=== PATIENT | female | born 1975 | race Caucasian/White ===

== ENCOUNTER 2024-04-28 08:18 | Outpatient (CLI) | payer OTHER, SELFPAY ==
[2024-04-28 08:37] LABS: Basophils Absolute Auto 0.1 K/mm3 (0.0-0.1); Basophils Percent Auto 1.2 % (0.2-1.2); Eosinophils Absolute Auto 0.1 K/mm3 (0-0.3); Eosinophils Percent Auto 2.3 % (0-4.4); Hematocrit 46.7 % (37.0-47.0); Hemoglobin 16.2 g/dL (12.0-15.0); Immature Granulocyte Absolute 0.01 K/mm3 (0.00-0.031); Immature Granulocyte Percent A 0.2 % (0-0.5); Lymphocytes Absolute Auto 2.22 K/mm3 (0.9-3.2); Lymphocytes Percent Auto 36.5 % (18.3-44.2); Mean Corpuscular HGB Conc 34.7 g/dl (32-36); Mean Corpuscular Hemoglobin 30.4 pg (26-34); Mean Corpuscular Volume 87.6 fl (80-100); Mean Platelet Volume 10.5 fl (7.4-10.4); Monocytes Absolute Auto 0.4 K/mm3 (0.1-0.6); Monocytes Percent Auto 6.7 % (2.6-8.5); Neutrophils Absolute Auto 3.2 K/mm3 (1.3-6.7); Neutrophils Percent Auto 53.1 % (45.5-73.1); Platelet Count Result 322 k/mm3 (150-375); Red Blood Count 5.33 M/mm3 (4.2-5.4); Red Cell Distribution Width 12.6 % (11.5-14.5); White Blood Count 6.1 K/mm3 (4.5-10.0)
[2024-04-28 08:53] LABS: Alanine Aminotransferase 23 U/L (6-35); Alkaline Phosphatase 76 U/L (38-126); Anion Gap 11 mmol/L (4-12); Aspartate Amino Transferase 30 U/L (14-36); Blood Urea Nitrogen 15 mg/dL (7-17); Calcium 9.6 mg/dL (8.4-10.2); Carbon Dioxide 29 mmol/L (22-30); Chloride 96 mmol/L (98-107); Cholesterol 284 mg/dL (0-200); Estimated Glomerular Filt Rate > 60; Glucose 89 mg/dL (65-110); HDL Direct 64 mg/dL; Potassium 3.2 mmol/L (3.4-5.0); Sodium 136 mmol/L (137-145); Triglycerides 124 mg/dL (<150)
[2024-04-28 09:04] LABS: LDL Cholesterol Direct 167 mg/dL
[2024-04-28 09:15] LABS: Free T4 Free Thyroxine 1.58 ng/mL (0.78-2.19); Vitamin D 25 Hydroxy 33.8 ng/mL
== END 2024-04-28 08:19 | disposition home or self-care (01) ==
LOC: ANHLAB 08:19
PROVIDERS: PCP Family Medicine; Visit Provider Family Medicine
DX: E55.9 Vitamin D deficiency, unspecified (principal); R53.83 Other fatigue; I10 Essential (primary) hypertension; R73.9 Hyperglycemia, unspecified; Z13.220 Encounter for screening for lipoid disorders
CPT/HCPCS: 36415; 80053; 80061; 82306; 83036; 84439; 84443; 85025

== ENCOUNTER 2024-11-13 08:19 | Outpatient (CLI) | payer OTHER, SELFPAY ==
--- NOTE | ~2024-11-13 | MM_ITS ---
EXAMINATION: MM screening ruddy BI w avi HISTORY: Screening mammogram, family history of breast cancer in her mother. TECHNIQUE: Craniocaudal and mediolateral oblique 3-D tomosynthesis images were obtained and synthetic 2-D images were generated. CAD analysis was submitted and interpreted. COMPARISON: No prior mammogram is available for comparison at this institution. BREAST PARENCHYMAL COMPOSITION:Not Dense. There are scattered areas of fibroglandular density. FINDINGS: No suspicious mass, calcification, or architectural distortion are identified in either melly ast to suggest malignancy. There has been no suspicious interval change. IMPRESSION: No mammographic evidence of malignancy. Recommend routine screening mammography in one year. BI-RADS Category 1: Negative Reviewed, dictated and finalized at location . OPHYSIOLOGICAL TECHNICIAN
== END 2024-11-13 08:20 | disposition home or self-care (01) ==
LOC: ANHIMG 08:20
PROVIDERS: PCP Family Medicine; Visit Provider Obstetrics & Gynecology
DX: Z12.31 Encounter for screening mammogram for malignant neoplasm of breast (principal)
CPT/HCPCS: 77063; 77067

== ENCOUNTER 2024-12-09 15:32 | Outpatient (CLI) | payer OTHER, SELFPAY ==
--- OUTSIDE RECORDS SUMMARY | 2024-12-09 16:18 | XMS_ITS | Clinical Summary ---
Author Organization [facility] Address [address] [place] [address] Care Team Providers Care Java Manager Name Role Phone Unavailable Primary Care Provider Unavailabl e Active Problems No known active problems Social History Tobacco Use Types Packs/Day Years Used Date Smoking Tobacco: Never Assessed Comments Unknown Sex and Gender Information Value Date Recorded Sex Assigned at Not on file Legal Sex Female 12:21 PM LINOTYPE WORKER Gender Identity Not on file Sexual Orientation Not on file Last Filed Vital Signs Vital Sign Reading Time Taken Comments Blood Pressure 129/84 12/17/2022 1:52 PM LINOTYPE WORKER Pulse 80 12/17/2022 1:52 PM LINOTYPE WORKER Temperature 37.6 ??C (99.7 ??F) 12/17/2022 1:52 PM CS T Respiratory Rate 18 12/17/2022 1:52 PM LINOTYPE WORKER Oxygen Saturation 100% 12/17/2022 1:52 PM LINOTYPE WORKER Inhaled Oxygen Concentration - - Weight 88.5 kg (195 lb) 12/17/2022 1:52 PM LINOTYPE WORKER Height 165.1 cm (5' 5 ) 12/17/2022 1:52 PM LINOTYPE WORKER Body Mass Index 32.45 12/17/2022 1:52 PM LINOTYPE WORKER Plan of Treatment Health Maintenance Due Date Last Done Comments DTAP/TDAP/TD VACCINES (1 - Tdap) 1994 HEPATITIS B VACCINES (1 of 3 - 19+ 3-dose series) 1994 CERVICAL CANCER SCREENING 2005 COLORECTAL SCREENING 2020 Colorectal Cancer Screening 2020 FIT-DNA Q 3 years 2020 FIT/FOBT Q 1 year 2020 Flex Sig/CT Colonography Q 5 years 2020 BREAST CANCER SCREENING 11/27/2022 11/27/19 22, 10/01/2020 INFLUENZA VACCINE (#1) 2024 PNEUMOCOCCAL VACCINE 0-64 YEARS Aged Out No longer eligible b ased on patient's age to complete this topic Insurance [facility]
--- OUTSIDE RECORDS SUMMARY | 2024-12-09 16:18 | XMS_ITS | Clinical Summary ---
Author Organization [facility] Address [address] [place] [address] Phone Care Team Providers Care Disability Liaison Officer Name Role Phone Provider, None Primary Care Provider Unavailabl e Allergies No known active allergies Medications hydroCHLOROthiaz gabriele 25 MG Tablet 08/26/2020 Ac tive PARoxetine (PAXIL) 10 MG Tablet 08/23/2020 Active OMEPRAZOLE PO Take by mouth. Active Active Problems No known active problems Social History Tobacco Use Types Packs/Day Years Used Date Smoking Tobacco: Never Smokeless Tobacco: Never Comments No Sex and Gender Information Value Date Recorded Sex Assigned at Not on file Legal Sex Female 1:14 PM BOOSTER ASSEMBLER Gender Identity Not on file Sexual Orientation Not on file Last Filed Vital Signs Vital Sign Reading Time Taken Comments Blood Pressure 136/80 12/08/2020 2:46 PM BOOSTER ASSEMBLER Pulse 54 12/08/2020 2:46 PM BOOSTER ASSEMBLER Temperature 36.6 ??C (97.9 ??F) 12/08/2020 2:46 PM CS T Respiratory Rate 16 12/08/2020 2:46 PM BOOSTER ASSEMBLER Oxygen Saturation 98% 12/08/2020 2:46 PM BOOSTER ASSEMBLER Inhaled Oxygen Concentration - - Weight 81.2 kg (179 lb) 12/08/2020 2:46 PM BOOSTER ASSEMBLER Height - - Body Mass Index - - Plan of Treatment Health Maintenance Due Date Last Done Comments Hepatitis C Virus (HCV) Screening 1975 Hepatitis B Immunization (1 of 3 - 19+ 3-dose series) 1994 Pap Smear 1996 Cervical Cancer Screening (CCS) 2005 HPV/Cotest 2005 Discussion re Starting/Frequency of Mammograms 2015 Colonoscopy 2020 Colorectal Cancer Screening 2020 Influenza Immunization (#1) 2024 SARS-COV-2 Immunization ( season) 2024 01/28/2021, 12/31/2020 Respiratory Syncytial Virus (RSV) Immunization (Adult) (1 - 1-dose 75+ series) 2050 DTaP/Tdap/Td Immunization Discontinued 12/12/2019 TdaP Immunization Completed 12/12/2019 Meningococcal Immunization (ACWY) Aged Out No longer eligible based on patient's age to complete this topic Pneumococcal Immunization Combined Aged Out No longer eligible based on patient's age to complete this topic Rotavirus Immunization Aged Out No lo nger eligible based on patient's age to complete this topic Care Teams Disability Liaison Officer Relationship Specialty Start Date End Date Provider, None [place] PCP - General 09/30/20
--- OUTSIDE RECORDS SUMMARY | 2024-12-09 16:18 | XMS_ITS | Referral Summary ---
Author Organization [facility] Address [address] [place] [address] Care Team Providers Care Farm Equipment Engineer Name Role Phone Chen Barfield MD Primary Care Provide r Allergies No known active allergies Medications omeprazole (PriLOSEC) 20 mg capsule Take 10 mg by mouth daily Take one half tablet Active loratadine (CLARITIN) 10 mg tablet Take 10 mg by mouth daily Active scopolamine 1 mg over 3 days patch [address] 1 patch on the skin every third day as needed (nausea) 10 patch 3 Active Additional Information Patient not taking.Reported on 03/01/2023 hydroCHLOROthia zide (HYDRODIURIL) 25 mg tablet Take 1 tablet (25 mg total) by mouth daily 90 tablet 3 Active Active Problems Problem Noted Date Diagnosed Date Hyperlipidemia, unspecified 03/01/2023 Assessment & Plan (03/01/2023 11:12 AM CDT): Lab Results Component Value Date CHOL 264 (H) 02/27/2023 Lab Results Component Value Date HDL 76 02/27/2023 Lab Results Component Value Date LDLCALC 175 (H) 02/27/2023 Lab Results Component Value Date TRIG 63 02/27/2023 No results found for: POCCHDLR No results found for: POCNONHDL No results found for: POCCHLPL ASCVD risk of 1.5% Discussed risks and benefits of the atorvastatin. She agrees to adjust her diet and if still elevated or worse will consider starting atorvastatin 10mg daily Recheck cmp and lipid before annual Encounter for completion of form with patient Assessment & Plan (03/01/2023 11:14 AM CDT): Forms will be filled and given back within the next 5-7 business days Acute pain of right knee 05/10/2022 Assessment & Plan (05/10/2022 12:04 PM CDT): Pain of 1 week Recommend rest, ice, compress, elevate, and aleve prn If no improvement will recommend xray and physical therapy F/u prn or worsening symptoms Encounter for wellness examination 05/10/2022 Assessment & Plan (05/10/2022 12:07 PM CDT): Ordered CBC, cmp, lipid, hgb a1c, HIV, hep c, TSH, and free t4 Flu Colonoscopy: she wants to read up on colMETEOR Networkuard and will call if she wants a referral. I explained the risk of not going through with screening which includes missing cancer and . She said will give us a call. Pap smear:will get records. Done in November Mammo:will get records. Done in November F/u in 1 year for annual Essential hypertension 05/10/2022 Assessment & Plan (03/01/2023 11:00 AM CDT): Bp in the office today BP Readings from Last 1 Encounters: 03/01/23 128/80 at goal <130/80 Continue current regimen of hctz 25mg daily and lisinopril 2.5mg daily Recommend DASH diet, heart-healthy lifestyle, exercise. Discussed the risks of hypertension. F/u at annual Assessment & Plan (05/10/2022 12:07 PM CDT): Bp in the office today BP Readings from Last 1 Encounters: 05/10/22 140/80 Near goal <130/80 Continue current regimen of hctz 25mg daily and lisinopril 5mg daily Recommend DASH diet, heart-healthy lifestyle, exercise. Discussed the risks of hypertension. F/u in 6 months Anxiety 05/10/2022 Assessment & Plan (05/10/2022 12:08 PM CDT): Stable Continue Paxil 5 mg daily [facility]erral to [facility] for therapy provided Follow-up p.r.n. Gastroesophageal reflux disease without esophagi tis 05/10/2022 Assessment & Plan (05/10/2022 12:08 PM CDT): Stable / clinically quiescent. Will continue to monitor. Omeprazole 20 mg daily Seasonal allergies 05/10/2022 Assessment & Plan (05/10/2022 12:08 PM CDT): Continue with Claritin 10 mg daily Immunizations Name Administration Dates Next Due Influenza, Unspecified 02/08/2023(Deferr ed: Patient Refused),05/10/2022(Deferred: Patient Refused),11/11/2021(Deferred: Patient Refused),06/11/2021(Deferred: Patient Refused) MMR 03/06/2023 Moderna SARS-CoV-2 Monovalen t Vaccination (12+ YRS) 10/31/2021,01/28/2021,12/31/2020 Tdap 12/12/2019 Social History Tobacco Use Types Packs/Day Years Used Date Smoking Tobacco: Never Smokeless Tobacco: Never Tobacco Cessation:Counseling Given: Not Answered AUDIT-C Answer Date Recorded Q1: How often do you have a drink containing alc ohol? Monthly or less 05/10/2022 Q2: How many drinks containi ng alcohol do you have on a typical day when you are drinking? 1 or 2 05/10/2022 Q3: How often do you have si x or more drinks on one occasion? Never 05/10/2022 PHQ-2 Answer Date Recorded PHQ-2 Total Score (If total score is 3 or more points, staff should administer the PHQ-9) 0 05/10/2022 Personal Safety Answer Date Recorded Getting School Help Needed Not on file 10/22 Comments No Sex and Gender Information Value Date Recorded Sex Assigned at Not on file Legal Sex Female 1:46 PM CDT Gender Identity Not on file Sexual Orientation Not on file Last Filed Vital Signs Vital Sign Reading Time Taken Comments Blood Pressure 128/80 03/01/2023 10:50 AM CDT Pulse 59 03/01/2023 10:50 AM CDT Temperature - - Respiratory Rate 16 03/01/2023 10:50 AM CDT Oxygen Saturation 98% 03/01/2023 10:50 AM CDT Inhaled Oxygen Concentration - - Weight 87.1 kg (192 lb) 03/01/2023 10:50 AM CDT Height 166.4 cm (5' 5.51 ) 03/01/2023 10:50 AM C DT Body Mass Index 31.45 03/01/2023 10:50 AM CDT Plan of Treatment Not on file Procedures Procedure Name Priority Date/Time Associated Diagnosis Comments SCREENING MAMMOGRAM BILATERAL W GARY Schedule Routine, Read Routine (OP Routine) 03/20/2023 2:42 PM CDT Screening mammogram, encounter for HEPATITIS C ANTIBODY Routine 02/27/2023 6:47 AM CDT Hypertension, unspecified type Healthcare maintenance from Last 3 Months or Most Recently Relevant to Health Maintenance Results * Screening Mammogram Bilateral W Gary (03/20/2023 2:42 PM CDT) Anatomical Region Laterality Modality Breast Bilateral Mammography 03/21/2023 10:1 1 AM CDT Impressions 03/21/2023 10:11 AM CDT There is no mammographic evidence of malignancy. A 1 year screening mammogram is recommended. BI-RADS: 2 - Benign. The patient has been or will be contacted. The patient will be entered into a reminder system with a target due date of 1 year for her next mammogram. Electronically signed by: MADALYN Banks 03/21/2023 10:11 AM CDT EXAMINATION: SCREENING MAMMOGRAM BILATERAL W GARY ORDERING HEALTHCARE PROVIDER: SELF SCREENING MAMMOGRAM HISTORY: Routine screening mammography. COMPARISON: ??11/27/2021. TECHNIQUE: CC and MLO views of both breasts were obtained with digital technique using digital breast tomosynthesis with C view. Computer aided detection was utilized. FINDINGS: DENSITY: The breasts are heterogeneously dense, which may obscure small masses. BREASTS: A small benign mass with circumscribed margins is unchanged in the central outer right breast at anterior depth. ??There is no new suspicious finding in either breast on mammogram. us Self Screening Mammogram IMG MAMMO PROCEDURES Fi nal Result * Hepatitis C antibody (02/27/2023 6:47 AM CDT) Hep C Ab Nonreactive Nonreactive [facility] (SHIV) Comment: Interpretive Data Nonreactive: Antibodies to HCV not detected. Does NOT exclude the possibility of recent exposure to HCV. Equivocal: Equivocal for HCV antibodies. Supplemental molecular testing will be automatically performed to determine infection status in accordance with current CDC screening recommendations. ?? Reactive: Positive for HCV antibodies. ??This may represent current or past HCV infection. Supplemental molecular testing will be automatically performed to determine ??current infection status in accordance with current CDC screening recommendations. Interpretive data was last revised on 2020. Testing performed by: [facility], [address] [place] [address]., [id number] Blood 02/27/2023 6:47 AM CDT 02/27/2023 9:32 AM CDT Chen Barfield MD LAB MICROBIOLOGY - NERAL ORDERABLES Final Result [facility] (SHIV) [address] [facility] Department [place] [address] from Last 3 Months or Most Recently Relevant to Health Maintenance Insurance [facility] PLUS [facility] CHOICE PLUS [place] [id number] Care Teams Farm Equipment Engineer Relationship Specialty Start Date End Date Chen Barfield MD [address] [facility] [address] [facility] [address] [place], [place] [address], [place] [address] PCP - General Family Medicine 05/10/22
--- OUTSIDE RECORDS SUMMARY | 2024-12-09 16:18 | XMS_ITS | Clinical Summary ---
Author Organization [facility] Address [address] [place] [address] Care Team Providers Care Tariff Compiler Name Role Phone Bridgette Nolan MD Primary Care Provider Source Comments [facility],non-owned Affiliates and Associated Physician Practices is amultiple site organization consisting of ambulatory clinics and hospital sitesin [place], [place], [place] and [place]. This disclosure is being madepursuant to the Care Everywhere program and may not contain all information available regarding this patient. Last updated 18.[facility] Allergies No known active allergies Medications * Be aware that medications may not be up to date on this document. Alwaysverify current medications with the patient. Medication Sig Dispensed Refills Start Date End Date Status hydroCHLOROthiazide (HYDRODIURIL) 25 MG tablet 08/26/2020 Active PARoxetine (PAXIL) 10 MG tablet 08/23/2020 Active Omeprazole (PRILOSEC PO) Active Family History Medical History Relation Name Comments Diabetes - Type 2 Father Hypertension Father Hypertension Maternal Grandfather Hypertension Maternal Grandmother Cancer - Breast Mother Hypertension Mother Hypertension Paternal Grandfather Hypertension Paternal Grandmother Relation Name Status Comments Father Maternal Grandfather Maternal Grandmother Mother Alive Paternal Grandfather Paternal Grandmother Social History Tobacco Use Types Packs/Day Years Used Date Smoking Tobacco: Never Smokeless Tobacco: Never Alcohol Use Standard Drinks/Week Comments Never 0 (1 standard drink = 0.6 oz pur e alcohol) AUDIT-C Answer Date Recorded Q1: How often do you have a drink containing alc ohol? Never 09/13/2020 Average Number of Drinks Not on file 020 Frequency of Binge Drinking Not on file 01/2020 PHQ-2 Answer Date Recorded PHQ2 TOTAL SCORE 0 11/27/2021 Sex and Gender Information Value Date Recorded Sex Assigned at Not on file Gender Identity Not on file Sexual Orientation Not on file Last Filed Vital Signs Vital Sign Reading Time Taken Comments Blood Pressure 165/97 11/27/2021 9:41 AM AQUATIC PERFORMER Pulse 70 11/27/2021 9:41 AM AQUATIC PERFORMER Temperature 36.7 ??C (98.1 ??F) 11/29/2020 4:50 PM CS T Respiratory Rate 17 11/07/2020 8:36 AM AQUATIC PERFORMER Oxygen Saturation 98% 11/14/2020 9:41 AM AQUATIC PERFORMER Inhaled Oxygen Concentration - - Weight 87.8 kg (193 lb 9.6 oz) 11/27/2021 9:41 A M AQUATIC PERFORMER Height 165.1 cm (5' 5 ) 11/27/2021 9:41 AM AQUATIC PERFORMER Body Mass Index 32.22 11/27/2021 9:41 AM AQUATIC PERFORMER Plan of Treatment Health Maintenance Due Date Last Done Comments COLOGUARD (AGES 45-75) - COL ON CA SCREENING 1975 COLON MONITORING 1975 COLONOSCOPY - COLON CA SCREENING 1975 CT COLONOGRAPHY - COLON CA SCREENING 1975 Colorectal Cancer Screening 1975 FIT - COLON CA SCREENING 1975 FLEX SIG - COLON CA SCREENING 1975 LIPID TESTING 1975 HIV SCREENING 1990 HEPATITIS C SCREENING 08/30/1993 DTAP/TDAP/TD VACCINES (1 - Tdap) 1994 HEPATITIS B VACCINE (1 of 3 - 19+ 3-dose series) 1994 SCREENING FOR DIABETES 11/27/2021 MAMMOGRAM 11/27/2023 11/27/2021, 10/01/2020 COVID-19 VACCINE (1 - 2023-2 5 season) 2024 INFLUENZA VACCINE (#1) 2024 08/22/2020 DEPRESSION SCREENING 11/11/2024 11/27/2021 ZOSTER VACCINE (1 of 2) 2025 PAP with HPV 11/27/2026 11/27/2021, 09/13/2020 HIB VACCINE Aged Out No longer eligi ble based on patient's age to complete this topic HPV VACCINE Aged Out No longer eligi ble based on patient's age to complete this topic MENINGOCOCCAL (Group B) VACCINE Aged Out No longer eligible b ased on patient's age to complete this topic MENINGOCOCCAL VACCINE Aged Out No miguelangel paulino eligible based on patient's age to complete this topic PNEUMOCOCCAL VACCINE Aged Out No long er eligible based on patient's age to complete this topic Procedures Procedure Name Priority Date/Time Associated Diagnosis Comments PAP IG CT+NG+TV+HPV HR Routine 11/27/2021 1:04 PM AQUATIC PERFORMER Well woman exam with routine gynecological exam MAMMO BILAT SCREENING W SALLY Routine 11/27/2021 11:34 AM AQUATIC PERFORMER Encounter for screening mammogram for malignant neoplasm of breast from Last 3 Months or Most Recently Relevant to Health Maintenance Results * PAP IG CT+NG+TV+HPV HR (11/27/2021 1:04 PM AQUATIC PERFORMER) Diagnosis [facility] ACCOUNT BILL Comment:NEGATIVE FOR INTRAEP ITHELIAL LESION OR MALIGNANCY. Specimen Adequacy [facility] ACCOUNT BILL Comment: Satisfactory for evaluation. ??Endocervical and/or squamous metaplastic cells (endocervical component) are present. Clinician Provided ICD10 [facility] ACCOUNT BILL Comment: Z01.419 N91.1 Performed by [facility] ACCOUNT BILL Comment:Mónica Fox, Cyto technologist (ASCP) Comment . [facility] ACCOUNT BILL Note [facility] ACCOUNT BILL Comment: The Pap smear is a screening test designed to aid in the detection of premalignant and malignant conditions of the uterine cervix. ??It is not a diagnostic procedure and should not be used as the sole means of detecting cervical cancer. ??Both false-positive and false-negative reports do occur. ? . IGLBP CPT Code Automation [facility] ACCOUNT BILL Comment: This liquid based ThinPrep(R) pap test was screened with the use of an image guided system. Human papillomavirus Aptima Negative Negative [facility] ACCOUNT BILL Comment: This nucleic acid amplification test detects fourteen high-risk HPV types (16,18,31,33,35,39,45,51,52,56,58,59,66,68) without differentiation. Chlamydia trachomatis AMARA Negative Negative [facility] ACCOUNT BILL GC AMARA Negative Negative [facility] ACCOUNT BILL Trichomonas vaginalis by AMARA Negative Negative [facility] ACCOUNT BILL Pathology/Cytolog y PART OF UTERINE CERVIX / Unknown 11/27/2021 1:04 PM AQUATIC PERFORMER 11/28/2021 Narrative [facility] ACCOUNT BILL - 11/29/2021 5:08 PM AQUATIC PERFORMER Source.............Cervix LMP / Prev Treat...Conization;[place] / BX Dates / Results....leep 1 yr ago No. of containers..01 ThinPrep Vial Resulting Agency Comment Lab Testing performed at: [address] ??[facility] [id number] Mya Means MD LAB - PATHOLOGY/CYTO LOGY ORDERABLES [facility] ACCOUNT BILL [address] [place] [address] * MAMMO BILAT SCREENING W SALLY (11/27/2021 11:34 AM AQUATIC PERFORMER) Anatomical Region Laterality Modality Breast Bilateral Mammography 11/27/2021 1:51 PM AQUATIC PERFORMER Impressions 11/27/2021 1:54 PM AQUATIC PERFORMER No mammographic evidence of malignancy in either breast. ASSESSMENT: BIRADS Category 1: Negative mammogram. RECOMMENDATION: Bilateral screening mammogram in one year. Thank you for allowing us to participate in the care of your patient. [facility] utilizes [employer] as a reminder system to notify patients of their next recommended mammogram. *Reading Radiologist: Morelia Everett on 11/27/2021 at 1:54 PM Narrative 11/27/2021 1:54 PM AQUATIC PERFORMER EXAMINATION: Digital screening mammogram. Low-dose full-field digital breast tomosynthesis examination was performed with synthetic 2D images and 3D acquisitions. Computer assisted detection was utilized. DATE: 11/27/2021 11:13 AM PRIOR: Several priors, most recently ??2020 BREAST PARENCHYMAL DENSITY: The breasts are heterogeneously dense, which may obscure small masses. FINDINGS: No suspicious masses, areas of architectural distortion or microcalcifications are evident on synthetic 2D mammogram or tomosynthesis images. There has been no significant interval change since the prior examination. Mya Means MD MAMMO ORDERABLES from Last 3 Months or Most Recently Relevant to Health Maintenance Care Teams Tariff Compiler Relationship Specialty Start Date End Date Bridgette Nolan MD [address] [facility] [address] [place] [id number] PCP - General Internal Medicine 09/13/20
--- OUTSIDE RECORDS SUMMARY | 2024-12-09 16:18 | XMS_ITS | Referral Summary ---
Author Organization [facility] Address [address] [place] [address] Care Team Providers Care Dinkey Engineer Name Role Phone Bridgette Nolan MD Primary Care Provider [phone] Source Comments [facility] [employer],non-owned Affiliates and Associated Physician Practices is amultiple site organization consisting of ambulatory clinics and hospital sitesin [place], [place], [place] and [place]. This disclosure is being madepursuant to the Care Everywhere program and may not contain all information available regarding this patient. Last updated 18.[facility] [employer] Allergies No known active allergies Medications * Be aware that medications may not be up to date on this document. Alwaysverify current medications with the patient. Medication Sig Dispensed Refills Start Date End Date Status hydroCHLOROthiazide (HYDRODIURIL) 25 MG tablet 08/26/2020 Active PARoxetine (PAXIL) 10 MG tablet 08/23/2020 Active Omeprazole (PRILOSEC PO) Active Social History Tobacco Use Types Packs/Day Years [...] Comments Blood Pressure 165/97 11/27/2021 9:41 AM GEOLOGY FACULTY MEMBER Pulse 70 11/27/2021 9:41 AM GEOLOGY FACULTY MEMBER Temperature 36.7 ??C (98.1 ??F) 11/29/2020 4:50 PM CS T Respiratory Rate 17 11/07/2020 8:36 AM GEOLOGY FACULTY MEMBER Oxygen Saturation 98% 11/14/2020 9:41 AM GEOLOGY FACULTY MEMBER Inhaled Oxygen Concentration - - Weight 87.8 kg (193 lb 9.6 oz) 11/27/2021 9:41 A M GEOLOGY FACULTY MEMBER Height 165.1 cm (5' 5 ) 11/27/2021 9:41 AM GEOLOGY FACULTY MEMBER Body Mass Index 32.22 11/27/2021 9:41 AM GEOLOGY FACULTY MEMBER Plan of Treatment Not on file Procedures Procedure Name Priority Date/Time Associated Diagnosis Comments PAP IG CT+NG+TV+HPV HR Routine 11/27/2021 1:04 PM GEOLOGY FACULTY MEMBER Well woman exam with routine gynecological exam MAMMO BILAT SCREENING W SALLY Routine 11/27/2021 11:34 AM GEOLOGY FACULTY MEMBER Encounter for screening mammogram for malignant neoplasm of breast from Last 3 Months or Most Recently Relevant to Health Maintenance Results * PAP IG CT+NG+TV+HPV HR (11/27/2021 1:04 PM GEOLOGY FACULTY MEMBER) Diagnosis [facility] ACCOUNT BILL Comment:NEGATIVE FOR INTRAEP [...] UTERINE CERVIX / Unknown 11/27/2021 1:04 PM GEOLOGY FACULTY MEMBER 11/28/2021 Narrative [facility] ACCOUNT BILL - 11/29/2021 5:08 PM GEOLOGY FACULTY MEMBER Source.............Cervix LMP / Prev Treat...Conization;[place] / BX Dates / Results....leep 1 yr ago No. of containers..01 ThinPrep Vial Resulting Agency Comment Lab Testing performed at: [address] ??[place] [phone] Mya Means MD LAB - PATHOLOGY/CYTO LOGY ORDERABLES [facility] ACCOUNT BILL [address] [place] [address] * MAMMO BILAT SCREENING W SALLY (11/27/2021 11:34 AM GEOLOGY FACULTY MEMBER) Anatomical Region Laterality Modality Breast Bilateral Mammography 11/27/2021 1:51 PM GEOLOGY FACULTY MEMBER Impressions 11/27/2021 1:54 PM GEOLOGY FACULTY MEMBER No mammographic evidence of malignancy in either breast. ASSESSMENT: BIRADS Category 1: Negative mammogram. RECOMMENDATION: Bilateral screening mammogram in one year. Thank you for allowing us to participate in the care of your patient. [facility] utilizes EPIC as a reminder system to notify patients of their next recommended mammogram. *Reading Radiologist: Morelia Everett on 11/27/2021 at 1:54 PM Narrative 11/27/2021 1:54 PM GEOLOGY FACULTY MEMBER EXAMINATION: Digital screening mammogram. Low-dose full-field digital [...] Recently Relevant to Health Maintenance Care Teams Dinkey Engineer Relationship Specialty Start Date End Date Bridgette Nolan MD [address] [facility] [address] [place] [phone] PCP - General Internal Medicine 09/13/20
--- OUTSIDE RECORDS SUMMARY | 2024-12-09 16:18 | XMS_ITS | Patient Health Summary ---
Author Organization [facility] Address [address] [place] [address] Care Team Providers Care Plastic Machine Operator Name Role Phone Bridgette Nolan MD Primary Care Provider [phone] Note from Formerly named [facility],non-owned Affiliates and Associated Physician Practices is amultiple site organization consisting of ambulatory clinics and hospital sitesin [place], [place], [place] and [place]. This disclosure is being madepursuant to the Care Everywhere program and may not contain all information available regarding this patient. Last updated 18.[facility] [employer] Allergies No known active allergies Medications * Be aware that medications may not be up to date on this document. Alwaysverify current medications with the patient. * hydroCHLOROthiazide (HYDRODIURIL) 25 MG tablet(Started 08/26/2020) * PARoxetine (PAXIL) 10 MG tablet(Started 08/23/2020) * Omeprazole (PRILOSEC PO) Social History Tobacco Use Types Packs/Day Years [...] Comments Blood Pressure 165/97 11/27/2021 9:41 AM SURVEYOR GEOPHYSICAL PROSPECTING Pulse 70 11/27/2021 9:41 AM SURVEYOR GEOPHYSICAL PROSPECTING Temperature 36.7 ??C (98.1 ??F) 11/29/2020 4:50 PM CS T Respiratory Rate 17 11/07/2020 8:36 AM SURVEYOR GEOPHYSICAL PROSPECTING Oxygen Saturation 98% 11/14/2020 9:41 AM SURVEYOR GEOPHYSICAL PROSPECTING Inhaled Oxygen Concentration - - Weight 87.8 kg (193 lb 9.6 oz) 11/27/2021 9:41 A M SURVEYOR GEOPHYSICAL PROSPECTING Height 165.1 cm (5' 5 ) 11/27/2021 9:41 AM SURVEYOR GEOPHYSICAL PROSPECTING Body Mass Index 32.22 11/27/2021 9:41 AM SURVEYOR GEOPHYSICAL PROSPECTING Procedures * PAP IG CT+NG+TV+HPV HR(Performed 11/27/2021) Performed for Well woman exam with routine gynecological exam * MAMMO BILAT SCREENING W SALLY(Performed 11/27/2021) Performed for Encounter for screening mammogram for malignant neoplasm of breast * CBC W/O DIFFERENTIAL(Performed 11/14/2020) Performed for Dizziness * PATHOLOGY TISSUE EXAM (STL)(Performed 11/07/2020) Performed for AALIYAH II (cervical intraepithelial neoplasia II) * HCG URINE QUAL POCT NOTIFICATION(Performed 11/07/2020) Performed for Preop testing * LARYNGEAL MASK AIRWAY(Performed 11/07/2020) * KS CONIZATION CERVIX,LOOP ELECTRD(Performed 11/07/2020) Performed for AALIYAH II (cervical intraepithelial neoplasia II) * HCG URINE QUALITATIVE - POCT (IP) INTERFACED(Performed 11/07/2020) * SARS-COV-2 (COVID-19) IN HOUSE(Performed 11/03/2020) Performed for Pre-procedure lab exam * SARS-COV2 (COVID-19) PANEL (STL)(Performed 11/03/2020) Performed for Pre-procedure lab exam * PATHOLOGY SPECIMEN(Performed 10/05/2020) Performed for LGSIL on Pap smear of cervix * HCG URINE QUALITATIVE - POINT OF CARE (AMB)(Performed 10/05/2020) Performed for Pre-procedure lab exam * MAMMO BILAT SCREENING(Performed 10/01/2020) Performed for Well woman exam with routine gynecological exam * PAP IG LB+HPV APTIMA(Performed 09/13/2020) Performed for Well woman exam with routine gynecological exam Results * PAP IG CT+NG+TV+HPV HR (11/27/2021 1:04 PM SURVEYOR GEOPHYSICAL PROSPECTING) Diagnosis [facility] ACCOUNT BILL Comment:NEGATIVE FOR INTRAEP [...] UTERINE CERVIX / Unknown 11/27/2021 1:04 PM SURVEYOR GEOPHYSICAL PROSPECTING 11/28/2021 Narrative [facility] ACCOUNT BILL - 11/29/2021 5:08 PM SURVEYOR GEOPHYSICAL PROSPECTING Source.............Cervix LMP / Prev Treat...Conization;[place] / BX Dates / Results....leep 1 yr ago No. of containers..01 ThinPrep Vial Resulting Agency Comment Lab Testing performed at: [facility] [address] ??[place] [phone] Mya Means MD LAB - PATHOLOGY/CYTO LOGY ORDERABLES [facility] ACCOUNT BILL [address] [place] [address] * MAMMO BILAT SCREENING W SALLY (11/27/2021 11:34 AM SURVEYOR GEOPHYSICAL PROSPECTING) Anatomical Region Laterality Modality Breast Bilateral Mammography 11/27/2021 1:51 PM SURVEYOR GEOPHYSICAL PROSPECTING Impressions 11/27/2021 1:54 PM SURVEYOR GEOPHYSICAL PROSPECTING No mammographic evidence of malignancy in either breast. ASSESSMENT: BIRADS Category 1: Negative mammogram. RECOMMENDATION: Bilateral screening mammogram in one year. Thank you for allowing us to participate in the care of your patient. [facility] [place] utilizes Solicore as a reminder system to notify patients of their next recommended mammogram. *Reading Radiologist: Morelia Everett on 11/27/2021 at 1:54 PM Narrative 11/27/2021 1:54 PM SURVEYOR GEOPHYSICAL PROSPECTING EXAMINATION: Digital screening mammogram. Low-dose full-field digital [...] prior examination. Mya Means MD MAMMO ORDERABLES * (ABNORMAL) CBC W/O DIFFERENTIAL (11/14/2020 10:19 AM SURVEYOR GEOPHYSICAL PROSPECTING) WBC 7.0 4.4 - 10.7 x10E9/L [facility] ACCOUNT BILL RBC 5.42(H) 3.80 - 5.20 x10E12/L [facility] ACCOUNT BILL Hemoglobin 16.2(H) 12.0 - 15.6 gm/dL [facility] ACCOUNT BILL Hematocrit 49.0(H) 35.9 - 45.5 % [facility] ACCOUNT BILL MCV 90.4 80.7 - 98.3 fl [facility] ACCOUNT BILL MCH 29.9 26.7 - 34.0 pg [facility] ACCOUNT BILL MCHC 33.1 30.8 - 35.9 gm/dL [facility] ACCOUNT BILL RDW 12.8 12.1 - 14.9 % [facility] ACCOUNT BILL Platelet Count 337 153 - 416 x10E9/L [facility] ACCOUNT BILL Comment:MPV FL BLOOD ([facility]) 1 0.9 fl 9.4-12.9 Blood BLOOD SPECIMEN / Unknown 11/14/2020 10:19 AM SURVEYOR GEOPHYSICAL PROSPECTING 11/14/2020 Narrative Resulting Agency Comment Lab Testing performed at: [facility] [place] [id number] [facility] [place] [phone] Mya Means MD LAB - HEMATOLOGY ORD ERABLES [facility] ACCOUNT BILL [address] [place] [address] * PATHOLOGY TISSUE EXAM (ST) (11/07/2020 7:43 AM SURVEYOR GEOPHYSICAL PROSPECTING) Case Report Surgical Pathology Report ? Case: [id number] ? Authorizing Provider: ??Mya Means MD ? Collected: ? 11/07/2020 07:43 AM ? Ordering Location: ? [facility] ?Received: ?11/07/2020 12:39 PM ? CENTER ? Pathologist: ? Marlo Oro MD ? Specimens: ?? A) - Cervix Conization, tophat ? B) - Cervix Conization, ectocervical biopsy ? 11/17/2020 1:25 PM SURVEYOR GEOPHYSICAL PROSPECTING [facility] Final Diagnosis A. Endocervical LEEP: -- Chronic inflammation -- Negative for dysplasia B. Ectocervical LEEP: -- Squamous intraepithelial neoplasia, high-grade (AALIYAH II), 12-3-6 o'clock -- Dysplasia focally involves an endocervical gland -- Ectocervical and endocervical margins free of dysplasia -- Chronic cervicitis, moderate AB/ns 11/17/2020 1:25 PM SURVEYOR GEOPHYSICAL PROSPECTING [facility] Gross Description Received in container A in formalin labeled Elizabeth Olson, endocervix biopsy top hat is a 2 x 1.1 x 0.2 cm oriented dull pink-beckman loop of endocervix. The endocervical margin is inked blue and the remainder of the specimen is inked black. The specimen is serially sectioned and entirely submitted sequentially as follows: A1 - 12 o'clock-3 o'clock A2 - 3 o'clock-6 o'clock A3 - 6 o'clock-9 o'clock A4 - 9 o'clock-12 o'clock. Received in container B in formalin labeled Elizabeth Olson, cervix biopsy ectocervical biopsy , consists of a 2.2 x 2.2 x 0.5 cm oriented pink-beckamn loop of cervix. The ectocervical mucosa is dull pink-beckman. The endocervical margin is inked blue and the ectocervical margin is inked black. The specimen is serially sectioned and entirely submitted sequentially as follows: B1 - 12 o'clock-3 o'clock B2 - 3 o'clock-6 o'clock B3 - 6 o'clock-9 o'clock B4 - 9 o'clock-12 o'clock. CH/eh 11/17/2020 1:25 PM SURVEYOR GEOPHYSICAL PROSPECTING [facility] Microscopic Description The endocervical LEEP shows benign columnar and squamous mucosa with some chronic inflammation. There is a gland in A2 which shows some cytologic atypia with the mouth of the gland inflamed. No convincing dysplasia is seen. The ectocervical LEEP shows squamocolumnar mucosa with moderate chronic inflammation and high-grade dysplasia in B1 and focally in B2. In B2, there is dysplasia involving an endocervical gland. B3 and B4 contain considerable inflammation, but appear to be free of dysplasia. AB/ns 11/17/2020 1:25 PM SURVEYOR GEOPHYSICAL PROSPECTING [facility] Disclaimer All histochemical and/or immunohistochemical results are interpreted with controls that demonstrate appropriate staining reactions before reporting results. Note on use of immunocytochemistry reagents: This test was developed and its performance characteristic determined by [facility], Department of Laboratory Medicine. It has not been cleared or approved by the U.S. Food and Drug Administration (FDA). The FDA has determined that such clearance or approval is not necessary. The test is used for clinical purpose. It should not be regarded as investigational or for research. This laboratory is certified to perform high complexity testing. The performance characteristics of the IHC/LIBERTAD assays have been validated on formalin-fixed paraffin embedded tissues only. The assays have not been validated on decalcified tissues. Results should be interpreted with caution. 11/17/2020 1:25 PM SURVEYOR GEOPHYSICAL PROSPECTING [facility] Embedded Images 11/17/2020 1:25 PM SURVEYOR GEOPHYSICAL PROSPECTING [facility] Pathology/Cytology SPECIMEN FROM LESION OF UTERINE CERVIX OBTAINED BY CONE BIOPSY / Unknown 11/07/2020 7:43 AM SURVEYOR GEOPHYSICAL PROSPECTING 11/07/2020 12:39 PM SURVEYOR GEOPHYSICAL PROSPECTING Comment:Pre-op diagnosis: N87.1 Miscellaneous samples (specimen) SPECIMEN FROM LESION OF UTERINE CERVIX OBTAINED BY CONE BIOPSY / Unknown 11/07/2020 7:48 AM SURVEYOR GEOPHYSICAL PROSPECTING 11/07/2020 12:39 PM SURVEYOR GEOPHYSICAL PROSPECTING Comment:Pre-op diagnosis: N87.1 Mya Means MD LAB - PATHOLOGY/CYTO LOGY ORDERABLES Performing Organization Address [facility] Co de Phone Number [facility] [id number] [place] [address] * HCG URINE QUAL POCT NOTIFICATION (11/07/2020 7:30 AM SURVEYOR GEOPHYSICAL PROSPECTING) Comment Notification Label Only - See Separate Report 11/07/2020 7:30 AM SURVEYOR GEOPHYSICAL PROSPECTING [facility] Urine URINE / Unknown 0 6:07 AM SURVEYOR GEOPHYSICAL PROSPECTING Mya Means MD LAB - URINALYSIS ORD ERABLES Performing Organization Address [facility] Phone Number [facility] [address] [place] [address] * LARYNGEAL MASK AIRWAY (11/07/2020 7:16 AM SURVEYOR GEOPHYSICAL PROSPECTING) Narrative Niecy Tobias DO - 11/07/2020 7:16 AM SURVEYOR GEOPHYSICAL PROSPECTING Ritesh Calderon APRN-CRNA ? 11/07/2020 ??7:17 AM LMA Placement Procedure/LDA Note: Patient Location: OR. LMA Insertion Date/Time: ??11/07/2020 7:14 AM Procedure: LMA. Pretreatment: 100% O2 Induction: standard IV Patient position: sniffing. Mask Ventilation: not attempted Type: ??gel LMA Size: ??4 Number of Attempts: 1. Placement verified by: direct visualization and CO2 monitor Dentition unchanged? ??Yes Procedure Start Time: 11/07/2020 7:14 AM. Procedure End Time: 11/07/2020 7:15 AM. Procedure Total Time: 1 ??minutes. Staff Section ?? Anesthesia Provider: Ritesh Calderon APRN-CRNA, Performed the procedure Niecy Tobias DO GENERAL ANESTHESIA O RDERABLES * HCG URINE QUALITATIVE - POCT (IP) INTERFACED (11/07/2020 6:17 AM SURVEYOR GEOPHYSICAL PROSPECTING) HCG Qual Urine Negative Negative 11/07/2020 6:23 AM SURVEYOR GEOPHYSICAL PROSPECTING [facility] Urine URINE / Unknown 11/07/2020 6 :17 AM SURVEYOR GEOPHYSICAL PROSPECTING 11/07/2020 6:23 AM SURVEYOR GEOPHYSICAL PROSPECTING Mya Means MD LAB - POINT OF CARE ORDERABLES Performing Organization Address [facility] Co de Phone Number [facility] [address] [place] [address] * SARS-COV-2 (COVID-19) IN HOUSE (11/03/2020 8:07 AM SURVEYOR GEOPHYSICAL PROSPECTING) COVID-19 PCR Not detected Not detected 11/03/2020 6:15 PM SURVEYOR GEOPHYSICAL PROSPECTING [facility]CRO[facility] Microbiology SPECIMEN FROM NASOPHARYNGEAL STRUCTURE / Unknown Collection / Unknown 11/03/2020 8:07 AM SURVEYOR GEOPHYSICAL PROSPECTING 11/03/2020 8:07 AM SURVEYOR GEOPHYSICAL PROSPECTING Narrative [facility] - 11/03/2020 6:15 PM SURVEYOR GEOPHYSICAL PROSPECTING This nucleic acid amplification assay performance was validated by [facility]. This test has been authorized by the Food and Drug administration (FDA)under an Emergency??Use Authorization (EUA). This test has been validated in accordance with the FDA's guidance document Policy for Diagnostic Testing in Laboratories Certified to perform High Complexity Testing under CLIA prior to Emergency Use Authorization for Coronavirus Disease-2019 during the Public Health Emergency issued on January 09, 2020. FDA independent review of this validation is pending. This test is only authorized for the duration of time the declaration that circumstances exist justifying the authorization of emergency use of in vitro diagnostic tests for detection of SARS-CoV-2 virus and/or diagnosis of COVID-19 infection under section 564(b)(1) of the Act, 21 U.S.C 360bbb-3 (b)(1), unless the authorization is terminated or revoked sooner. Fact Sheets for this EUA assay are available upon request. Mya Means MD LAB - MICROBIOLOGY O RDERABLES Performing Organization Address [facility]/ZIP Co de Phone Number [facility] MICROBIOLOG[facility] [address] [place] [address], [facility] [phone] * PATHOLOGY SPECIMEN (10/05/2020 5:00 PM SURVEYOR GEOPHYSICAL PROSPECTING) Material [facility] ACCOUNT BILL Comment: Material submitted: ?. PART A: ectocervix - ECTOCERVICAL BIOPSY PART B: endocervix - ENDOCERVICAL CURETTAGE F Diagnosis [facility] ACCOUNT BILL Comment: Diagnosis: Part A: ECTOCERVICAL BIOPSY: FRAGMENTS OF NEGATIVE ENDOCERVIX WITH FRAGMENTS OF SQUAMOUS EPITHELIUM WITH LOW GRADE SQUAMOUS INTRAEPITHELIAL LESION (AALIYAH 1). . Part B: ENDOCERVICAL CURETTAGE: HIGH-GRADE SQUAMOUS INTRAEPITHELIAL LESION (AALIYAH 2). FRAGMENTS OF NEGATIVE ENDOCERVIX. . COMMENT: The histologic features of this specimen correlate with patient's recent pap smear. This case was seen by members of the Pathology Staff as an intradepartmental consult. [facility] ??10/10/2020 ??1406 Local Signed [facility] ACCOUNT BILL Comment: Electronically signed: ? . Margarita Amaya MD, Pathologist Grossed [facility] ACCOUNT BILL Comment: Gross description: ? . 2 Containers, formalin-filled, labeled with patient identification. Part A: ECTOCERVICAL BIOPSY: MULTIPLE FRAGMENT(S) OF SOFT MATERIAL, BLOOD, AND MUCUS MEASURING 2.4 X 0.7 X 0.1 CM IN AGGREGATE. FILTERED AND SUBMITTED IN CASSETTE(S) A1. Part B: ENDOCERVICAL CURETTAGE: MULTIPLE FRAGMENT(S) OF SOFT MATERIAL, BLOOD, AND MUCUS MEASURING 1.9 X 0.7 X 0.1 CM IN AGGREGATE. FILTERED AND SUBMITTED IN CASSETTE(S) B1. HAV/HAV ??10/07/2020 ??0950 Local Pathologist Provided ICD10 [facility] ACCOUNT BILL Comment: Pathologist provided ICD-10: N87.0, N87.1 CPT [facility] ACCOUNT BILL Comment: CPT ?. 430112, [id number] Pathology/Cytolo gy MISCELLANEOUS SAMPLES / Unknown 10/05/2020 5:00 PM SURVEYOR GEOPHYSICAL PROSPECTING 10/07/2020 Narrative Resulting Agency Comment [facility] [address] [place] [address] ?? [facility] [phone] Mya Means MD LAB - PATHOLOGY/CYTO LOGY ORDERABLES [facility] ACCOUNT BILL [address] [place] [address] * HCG URINE QUALITATIVE - POINT OF CARE (AMB) (10/05/2020) HCG Qual Urine Negative Negative QC Verified Yes Yes Urine URINE / Unknown 10/05/2020 Mya Means MD LAB - POINT OF CARE ORDERABLES * MAMMO BILAT SCREENING (10/01/2020 9:59 AM SURVEYOR GEOPHYSICAL PROSPECTING) Anatomical Region Laterality Modality Breast Bilateral Mammography 10/12/2020 2:35 PM SURVEYOR GEOPHYSICAL PROSPECTING Narrative 10/12/2020 2:46 PM SURVEYOR GEOPHYSICAL PROSPECTING DIGITAL BILATERAL SCREENING MAMMOGRAMS WITH CAD AND 3-D TOMOSYNTHESIS DATE: 10/01/2020, 9:07 AM PREVIOUS EXAM DATE: 03/24/2019, 08/16/[address] [facility]. INDICATION: Screening TECHNIQUE: Bilateral craniocaudad (CC) and mediolateral oblique (MLO) views. Images were interpreted with the aid of CAD. 3-D tomosynthesis images were performed. TECHNOLOGIST: Kate Doll, RT (R) (M) TISSUE DENSITY: Heterogeneously dense. This may lower the sensitivity of mammography. ??Please correlate with clinical examination. FINDINGS: There is no discrete abnormality. The density of the breasts limits the sensitivity of mammography. There is no mass nor microcalcification noted. ASSESSMENT: (BI-RADS 2) Benign finding. RECOMMENDATIONS: Continued annual screening mammography The above findings should be correlated with physical examination. A relatively nonspecific study should not preclude additional evaluation if suspicious findings are present clinically. An [employer]. [facility] Centers utilize Solicore as a reminder system to notify patients of their next recommended mammograms. Edited by Radha Iqbal on 10/12/2020 2:43 PM *Reading Radiologist: Jennifer Lake on 10/12/2020 at 2:46 PM Mya Means MD MAMMO ORDERABLES * (ABNORMAL) PAP IG LB+HPV APTIMA (09/13/2020 11:23 AM SURVEYOR GEOPHYSICAL PROSPECTING) Diagnosis (A) [facility] ACCOUNT BILL Comment: EPITHELIAL CELL ABNORMALITY. LOW GRADE SQUAMOUS INTRAEPITHELIAL LESION (LSIL). Recommendation (A) [facility] ACCOUNT BILL Comment:Suggest follow up as clinically appropriate. Specimen Adequacy [facility] ACCOUNT BILL Comment: Satisfactory for evaluation. ??Endocervical and/or squamous metaplastic cells (endocervical component) are present. Clinician Provided ICD10 [facility] ACCOUNT BILL Comment:Z01.419 Performed by [facility] ACCOUNT BILL Comment:Stefanie Villalobos, Cytot echnologist (ASCP) Electronically Signed by [facility] ACCOUNT BILL Comment:Margarita Amaya MD, Pa thologist Comment . [facility] ACCOUNT BILL Pathologist Provided ICD10 [facility] ACCOUNT BILL Comment:R87.612 Note [facility] ACCOUNT BILL Comment: The Pap [...] an image guided system. Human papillomavirus Aptima Positive( A) Negative [facility] ACCOUNT BILL Comment: This nucleic acid amplification test detects fourteen high-risk HPV types (16,18,31,33,35,39,45,51,52,56,58,59,66,68) without differentiation. PART OF UTERINE CERVIX / Unknown 09/13/2020 11:23 AM SURVEYOR GEOPHYSICAL PROSPECTING 09/13/2020 Narrative [facility] ACCOUNT BILL - 09/20/2020 5:08 PM SURVEYOR GEOPHYSICAL PROSPECTING Source.............Cervix No. of containers..01 ThinPrep Vial Resulting Agency Comment Lab Testing performed at: [address] ??[facility] [phone] Mya Means MD LAB - PATHOLOGY/CYTO LOGY ORDERABLES [facility] ACCOUNT BILL [address] [place] [address] Care Teams Plastic Machine Operator Relationship Specialty Start Date End Date Bridgette Nolan MD [address] [facility] [address] [place] [address] PCP - General Internal Medicine 09/13/20
--- OUTSIDE RECORDS SUMMARY | 2024-12-09 16:18 | XMS_ITS | Clinical Summary ---
Author Organization [facility] A Address [address] [place] [address] Care Team Providers Care Superintendent Stevedoring Name Role Phone Chen Barfield MD Primary [...] Colonoscopy: she wants to read up on colAirside Mobileuard and will call if she wants a [...] Continue Paxil 5 mg daily Referral to [facility] for therapy provided Follow-up p.r.n. Gastroesophageal reflux [...] t Vaccination (12+ YRS) 10/31/2021,01/28/2021,12/31/2020 Tdap 12/12/2019 Surgical History Surgery Date Site/Laterality Comments CHOLECYSTECTOMY N/A Medical History Medical History Date Comments GERD (gastroesophageal reflux disease) Allergic Anxiety Hypertension Family History Medical History Relation Name Comments Diabetes Father Heart disease Father Breast cancer Mother Relation Name Status Comments Father Mother Alive Sister Alive Social History Tobacco Use Types Packs/Day Years [...] on file Sexual Orientation Not on file Obstetrics History Para Term AB IAB SAB Ectopic Multiple Livin g Live Births 0 0 0 Last Filed Vital Signs Vital Sign Reading [...] 03/01/2023 10:50 AM CDT Plan of Treatment Health Maintenance Due Date Last Done Comments Cervical Cancer Screening 1975 Colon Cancer Screening-Colonoscopy 1975 Hepatitis B Screening 1993 Depression Screening 05/10/2023 05/10/2022 Regular Well Visit/Exam 18-64 05/10/2023 05/10/2022 Breast Cancer Screening-Mammogram 03/20/2024 03/20/2023 Covid-19 Vaccine ( - 2023-2 5 season) 2024 10/31/2021, 01/28/2021, 12/31/2020 Influenza Vaccine (#1) 2024 DTaP/Tdap/Td Vaccine (2 - Td or Tdap) 12/12/2029 12/12/2019 Hepatitis C Screening Completed 02/27/2023 Pneumococcal vaccine <65 Aged Out No longer eligible based on [...] her next mammogram. Electronically signed by: MADALYN KERR Narrative 03/21/2023 10:11 AM CDT EXAMINATION: SCREENING MAMMOGRAM [...] suspicious finding in either breast on mammogram. Self Screening Mammogram IMG MAMMO PROCEDURES Fi [...] last revised on 2020. Testing performed by: [facility], [address] [place] [address]., [id number] Blood 02/27/2023 6:47 AM CDT 02/27/2023 9:32 AM CDT Chen Barfield MD LAB MICROBIOLOGY - GE NERAL ORDERABLES Final Result [facility] (SHIV) 1 [facility] Department [place] [address] from Last 3 Months or Most Recently Relevant to Health Maintenance Insurance [employer] Care Teams Superintendent Stevedoring Relationship Specialty Start Date End Date Chen Barfield MD [address] [place] [address] PCP - General Family Medicine 05/10/22
[2024-12-09 19:42] LABS: Basophils Absolute Auto 0.1 K/mm3 (0.0-0.1); Basophils Percent Auto 0.8 % (0.2-1.2); Eosinophils Absolute Auto 0.2 K/mm3 (0-0.3); Eosinophils Percent Auto 2.2 % (0-4.4); Hematocrit 43.7 % (37.0-47.0); Hemoglobin 14.7 g/dL (12.0-15.0); Immature Granulocyte Absolute 0.02 K/mm3 (0.00-0.031); Immature Granulocyte Percent A 0.2 % (0-0.5); Lymphocytes Absolute Auto 2.94 K/mm3 (0.9-3.2); Lymphocytes Percent Auto 32.3 % (18.3-44.2); Mean Corpuscular HGB Conc 33.6 g/dl (32-36); Mean Corpuscular Hemoglobin 30.2 pg (26-34); Mean Corpuscular Volume 89.7 fl (80-100); Monocytes Absolute Auto 0.7 K/mm3 (0.1-0.6); Monocytes Percent Auto 7.7 % (2.6-8.5); Neutrophils Absolute Auto 5.2 K/mm3 (1.3-6.7); Neutrophils Percent Auto 56.8 % (45.5-73.1); Platelet Count Result 353 k/mm3 (150-375); Red Blood Count 4.87 M/mm3 (4.2-5.4); Red Cell Distribution Width 12.8 % (11.5-14.5); White Blood Count 9.1 K/mm3 (4.5-10.0)
[2024-12-09 20:35] LABS: Alanine Aminotransferase 35 U/L (6-35); Albumin Level 4.5 g/dL (3.5-5.1); Alkaline Phosphatase 76 U/L (38-126); Anion Gap 11 mmol/L (4-12); Aspartate Amino Transferase 34 U/L (14-36); Bilirubin,Total 0.7 mg/dL (0.2-1.3); Blood Urea Nitrogen 15 mg/dL (7-17); Carbon Dioxide 31 mmol/L (22-30); Chloride 93 mmol/L (98-107); Cholesterol 278 mg/dL (0-200); Estimated Glomerular Filt Rate > 60; Glucose 97 mg/dL (65-110); HDL Direct 67 mg/dL; Potassium 3.2 mmol/L (3.4-5.0); Sodium 135 mmol/L (137-145); Triglycerides 144 mg/dL (<150)
[2024-12-09 20:48] LABS: LDL Cholesterol Direct 160 mg/dL
== END 2024-12-09 15:33 | disposition home or self-care (01) ==
LOC: ANHGOSHLAB 15:33
PROVIDERS: PCP Family Medicine; Visit Provider Family Medicine
DX: E78.5 Hyperlipidemia, unspecified (principal); D58.2 Other hemoglobinopathies; I10 Essential (primary) hypertension; E87.6 Hypokalemia
CPT/HCPCS: 36415; 80053; 80061; 82172; 85025

== ENCOUNTER 2025-06-09 08:06 | Outpatient (CLI) | payer OTHER, SELFPAY ==
--- OUTSIDE RECORDS SUMMARY | 2025-06-09 08:16 | XMS_ITS | Clinical Summary ---
Author Organization [facility] Medical Office Building A Address [address] [place] [address] Care Team Providers Care Masking Machine Operator Name Role Phone Chen Barfield MD Primary [...] Colonoscopy: she wants to read up on colMamaherbuard and will call if she wants a [...] Continue Paxil 5 mg daily Referral to [facility] for therapy provided Follow-up p.r.n. Gastroesophageal reflux disease without esophagi tis 05/10/2022 Assessment & Plan (05/10/2022 12:08 PM CDT): Stable / clinically quiescent. Will continue to monitor. Omeprazole 20 mg daily Seasonal allergies 05/10/2022 Assessment & Plan (05/10/2022 12:08 PM CDT): Continue with Claritin 10 mg daily Immunizations Immunization Administration Dates Next Due Influenza, Unspecified 02/08/2023(Deferr [...] 10:50 AM CDT Height 166.4 cm (5' 5.51) 03/01/2023 10:50 AM C DT Body Mass [...] 2024 10/31/2021, 01/28/2021, 12/31/2020 Influenza Vaccine (#1) 2025 DTaP/Tdap/Td Vaccine (2 - Td or Tdap) [...] SCREENING MAMMOGRAM HISTORY: Routine screening mammography. COMPARISON: 11/27/2021. TECHNIQUE: CC and MLO views of both breasts were obtained with digital technique using digital breast tomosynthesis with C view. Computer aided detection was utilized. FINDINGS: DENSITY: The breasts are heterogeneously dense, which may obscure small masses. BREASTS: A small benign mass with circumscribed margins is unchanged in the central outer right breast at anterior depth. There is no new suspicious finding in either [...] in accordance with current CDC screening recommendations. Reactive: Positive for HCV antibodies. This may represent current or past HCV infection. Supplemental molecular testing will be automatically performed to determine current infection status in accordance with current CDC screening recommendations. Interpretive data was last revised on 2020. Testing performed by: [facility], [address] [place] [address], [place]., [address] Blood 02/27/2023 6:47 AM CDT 02/27/2023 9:32 AM CDT Chen Barfield MD LAB MICROBIOLOGY - [facility] ORDERABLES Final Result [facility] ([facility]IV) 1 [facility] Department [place] [address] from Last 3 Months or Most Recently Relevant to Health Maintenance Insurance [facility] H[facility]/PPO Address: [place] [address] [facility] [employer] HMO/PPO Address: [address] [place] [address] Care Teams Masking Machine Operator Relationship Specialty Start Date End Date Chen Barfield MD [address] [place] [address] PCP - General Family Medicine 05/10/22
--- OUTSIDE RECORDS SUMMARY | 2025-06-09 08:16 | XMS_ITS | Referral Summary ---
Author Organization [facility] Medical Office Building A Address [address] [place] [address] Care Team Providers Care Rangeland Management Specialist Name Role Phone Chen Barfield MD Primary [...] Colonoscopy: she wants to read up on colGetYourGuideuard and will call if she wants a [...] Continue Paxil 5 mg daily Referral to [facility] for therapy provided Follow-up p.r.n. Gastroesophageal reflux [...] AM CDT) Hep C Ab Nonreactive Nonreactive [facility] (SHIV) Comment: Interpretive Data Nonreactive: Antibodies to [...] last revised on 2020. Testing performed by: [facility], [address] [place] [address]., [id number] Blood 02/27/2023 6:47 AM CDT 02/27/2023 9:32 AM CDT Chen Barfield MD LAB MICROBIOLOGY - [facility] ORDERABLES Final Result [facility] (SHIV) 1 [facility] Department [place] [address] from Last 3 Months or Most Recently Relevant to Health Maintenance Insurance [facility] PLUS [facility] PL[employer] Care Teams Rangeland Management Specialist Relationship Specialty Start Date End Date Chen Barfield MD [address] [place] [address] PCP - General Family Medicine 05/10/22
--- OUTSIDE RECORDS SUMMARY | 2025-06-09 08:16 | XMS_ITS | Clinical Summary ---
Author Organization [facility]@ [facility] Address [address] [place] [address] Care Team Providers Care Ballast Regulator Operator Name Role Phone Bridgette Nolan MD Primary Care Provider [phone] Source Comments [facility],non-owned Affiliates and Associated Physician Practices is amultiple site organization consisting of ambulatory clinics and hospital sitesin [place], [place], [place] and [place]. This disclosure is being madepursuant to the Care Everywhere program and may not contain all information available regarding this patient. Last updated 18.[facility] Allergies No known active allergies Medications * Be aware that medications may not be up to date on this document. Alwaysverify current medications with the patient. hydroCHLOROthiazid e (HYDRODIURIL) 25 MG tablet 08/26/2020 Active PARoxetine [...] Date Recorded PHQ2 TOTAL SCORE 0 11/27/2021 Comments No Sex and Gender Information Value Date Recorded Sex Assigned at Not on file Legal Sex Female 12:16 PM CDT Gender Identity Not on file Sexual Orientation Not on file Last Filed Vital Signs Vital Sign Reading Time Taken Comments Blood Pressure 165/97 11/27/2021 9:41 AM TEST AND RESEARCH REACTOR OPERATOR Pulse 70 11/27/2021 9:41 AM TEST AND RESEARCH REACTOR OPERATOR Temperature 36.7 C (98.1 F) 11/29/2020 4:50 PM TEST AND RESEARCH REACTOR OPERATOR Respiratory Rate 17 11/07/2020 8:36 AM TEST AND RESEARCH REACTOR OPERATOR Oxygen Saturation 98% 11/14/2020 9:41 AM TEST AND RESEARCH REACTOR OPERATOR Inhaled Oxygen Concentration - - Weight 87.8 kg (193 lb 9.6 oz) 11/27/2021 9:41 A M TEST AND RESEARCH REACTOR OPERATOR Height 165.1 cm (5' 5) 11/27/2021 9:41 AM TEST AND RESEARCH REACTOR OPERATOR Body Mass Index 32.22 11/27/2021 9:41 AM TEST AND RESEARCH REACTOR OPERATOR Plan of Treatment Health Maintenance Due Date Last Done Comments COLOGUARD (AGES 45-75) - COL ON CA SCREENING 1975 COLON MONITORING 1975 COLONOSCOPY - COLON CA SCREENING 1975 CT COLONOGRAPHY - COLON CA SCREENING 1975 Colorectal Cancer Screening 1975 FIT - COLON CA SCREENING 1975 FLEX SIG - COLON CA SCREENING 1975 HIV SCREENING 1990 HEPATITIS C SCREENING 08/30/1993 DTAP/TDAP/TD VACCINES (1 - Tdap) 1994 HEPATITIS B VACCINE (1 of 3 - 19+ 3-dose series) 1994 SCREENING FOR DIABETES 08/22/2023 08/22/2020 MAMMOGRAM 11/27/2023 11/27/2021, 10/01/2020 COVID-19 VACCINE (1 - 2023-2 5 season) 2024 DEPRESSION SCREENING 11/11/2024 11/27/2021 INFLUENZA VACCINE (#1) 2025 08/22/2020 LIPID TESTING 08/22/2025 08/22/2020 ZOSTER VACCINE (1 of 2) 2025 PAP with HPV 11/27/2026 11/27/2021, 09/13/2020 HIB VACCINE Aged Out No longer eligi ble based on patient's age to complete this topic HPV VACCINE Aged Out No longer eligi ble based on patient's age to complete this topic MENINGOCOCCAL (Group B) VACCINE SHARED DECISION-MAKING Aged Out No longer eligible based on patient's age to complete this topic MENINGOCOCCAL GROUPS A/C/Y/W VACCINE Aged Out No longer eligible b ased on patient's age to complete this topic Procedures Procedure Name Priority Date/Time Associated Diagnosis Comments PAP IG CT+NG+TV+HPV HR Routine 11/27/2021 1:04 PM TEST AND RESEARCH REACTOR OPERATOR Well woman exam with routine gynecological exam MAMMO BILAT SCREENING W SALLY Routine 11/27/2021 11:34 AM TEST AND RESEARCH REACTOR OPERATOR Encounter for screening mammogram for malignant neoplasm of breast from Last 3 Months or Most Recently Relevant to Health Maintenance Results * PAP IG CT+NG+TV+HPV HR (11/27/2021 1:04 PM TEST AND RESEARCH REACTOR OPERATOR) Diagnosis [facility] ACCOUNT BILL Comment:NEGATIVE FOR INTRAEP ITHELIAL LESION OR MALIGNANCY. Specimen Adequacy [facility] ACCOUNT BILL Comment: Satisfactory for evaluation. Endocervical and/or squamous metaplastic cells (endocervical component) are present. Clinician Provided ICD10 [facility] ACCOUNT BILL Comment: Z01.419 N91.1 Performed by [facility] ACCOUNT BILL Comment:Mónica Fox, Cyto technologist (ASCP) Comment . [facility] ACCOUNT BILL Note [facility] ACCOUNT BILL Comment: The Pap smear is a screening test designed to aid in the detection of premalignant and malignant conditions of the uterine cervix. It is not a diagnostic procedure and should not be used as the sole means of detecting cervical cancer. Both false-positive and false-negative reports do occur. . IGLBP CPT Code Automation [facility] ACCOUNT [...] UTERINE CERVIX / Unknown 11/27/2021 1:04 PM TEST AND RESEARCH REACTOR OPERATOR 11/28/2021 Narrative [facility] ACCOUNT BILL - 11/29/2021 5:08 PM TEST AND RESEARCH REACTOR OPERATOR Source.............Cervix LMP / Prev Treat...Conization;[place] / BX Dates / Results....leep 1 yr ago No. of containers..01 ThinPrep Vial Resulting Agency Comment Lab Testing performed at: [facility] [address] [place] [id number] [place] Mya Means MD LAB - PATHOLOGY/CYTOLOGY OZZYE CHASITY Final Result [facility] ACCOUNT BILL [address] [place] [address] * MAMMO BILAT SCREENING W SALLY (11/27/2021 11:34 AM TEST AND RESEARCH REACTOR OPERATOR) Anatomical Region Laterality Modality Breast Bilateral Mammography 11/27/2021 1:51 PM TEST AND RESEARCH REACTOR OPERATOR Impressions 11/27/2021 1:54 PM TEST AND RESEARCH REACTOR OPERATOR No mammographic evidence of malignancy in either breast. ASSESSMENT: BIRADS Category 1: Negative mammogram. RECOMMENDATION: Bilateral screening mammogram in one year. Thank you for allowing us to participate in the care of your patient. [facility] Breast Care utilizes [employer] as a reminder system to notify patients of their next recommended mammogram. *Reading Radiologist: Morelia Everett on 11/27/2021 at 1:54 PM Narrative 11/27/2021 1:54 PM TEST AND RESEARCH REACTOR OPERATOR EXAMINATION: Digital screening mammogram. Low-dose full-field digital breast tomosynthesis examination was performed with synthetic 2D images and 3D acquisitions. Computer assisted detection was utilized. DATE: 11/27/2021 11:13 AM PRIOR: Several priors, most recently 2019 BREAST PARENCHYMAL DENSITY: The breasts are heterogeneously dense, which may obscure small masses. FINDINGS: No suspicious masses, areas of architectural distortion or microcalcifications are evident on synthetic 2D mammogram or tomosynthesis images. There has been no significant interval change since the prior examination. us Mya Means MD MAMMO ORDERABLES Final Result from Last 3 Months or Most Recently Relevant to Health Maintenance Insurance [facility] Care Teams Ballast Regulator Operator Relationship Specialty Start Date End Date Bridgette Nolan MD [address] [place] [address] PCP - General Internal Medicine 09/13/20
--- OUTSIDE RECORDS SUMMARY | 2025-06-09 08:16 | XMS_ITS | Clinical Summary ---
Author Organization [facility] Address [address] [place] [phone] Phone Care Team Providers Care Lug Breaker And Wire Puller Name Role Phone Provider, None Primary Care [...] on file Legal Sex Female 1:14 PM MEMBERSHIP ADMINISTRATOR Gender Identity Not on file Sexual Orientation Not on file Last Filed Vital Signs Vital Sign Reading Time Taken Comments Blood Pressure 136/80 12/08/2020 2:46 PM MEMBERSHIP ADMINISTRATOR Pulse 54 12/08/2020 2:46 PM MEMBERSHIP ADMINISTRATOR Temperature 36.6 C (97.9 F) 12/08/2020 2:46 PM MEMBERSHIP ADMINISTRATOR Respiratory Rate 16 12/08/2020 2:46 PM MEMBERSHIP ADMINISTRATOR Oxygen Saturation 98% 12/08/2020 2:46 PM MEMBERSHIP ADMINISTRATOR Inhaled Oxygen Concentration - - Weight 81.2 kg (179 lb) 12/08/2020 2:46 PM MEMBERSHIP ADMINISTRATOR Height - - Body Mass Index - - Plan of Treatment Health Maintenance Due Date Last Done Comments Hepatitis C Virus (HCV) Screening 1975 Hepatitis B Immunization (1 of 3 - 19+ 3-dose series) 1994 Pap Smear 1996 Cervical Cancer Screening (CCS) 2005 HPV/Cotest 2005 Cologuard 2020 Colonoscopy 2020 Colorectal Cancer Screening 2020 Immunochemical Fecal Occult Blood 2020 SARS-COV-2 Immunization ( season) 2024 01/28/2021, 12/31/2020 Influenza Immunization (#1) 2025 Respiratory Syncytial Virus (RSV) Immunization (Adult) (1 - 1-dose 75+ series) 2050 DTaP/Tdap/Td Immunization Discontinued 12/12/2019 TdaP Immunization Completed 12/12/2019 Human Papillomavirus (HPV) Immunization Aged Out No longer eligible based on patient's age to complete this topic Meningococcal Immunization (ACWY) Aged Out No longer eligible based on patient's age to complete this topic Pneumococcal Immunization Combined Aged Out No longer eligible based on patient's age to complete this topic Rotavirus Immunization Aged Out No lo nger eligible based on patient's age to complete this topic Care Teams Lug Breaker And Wire Puller Relationship Specialty Start Date End Date Provider, None [place] PCP - General 09/30/20
--- OUTSIDE RECORDS SUMMARY | 2025-06-09 08:16 | XMS_ITS | Clinical Summary ---
Author Organization [facility] Address [address] [place] [address] Care Team Providers Care Needle Molder Name Role Phone Unavailable Primary Care Provider Unavailabl e Active Problems No known active problems Social History Tobacco Use Types Packs/Day Years Used Date Smoking Tobacco: Never Assessed Comments Unknown Sex and Gender Information Value Date Recorded Sex Assigned at Not on file Legal Sex Female 12:21 PM CYBER OPERATOR Gender Identity Not on file Sexual Orientation Not on file Last Filed Vital Signs Vital Sign Reading Time Taken Comments Blood Pressure 129/84 12/17/2022 1:52 PM CYBER OPERATOR Pulse 80 12/17/2022 1:52 PM CYBER OPERATOR Temperature 37.6 C (99.7 F) 12/17/2022 1:52 PM CYBER OPERATOR Respiratory Rate 18 12/17/2022 1:52 PM CYBER OPERATOR Oxygen Saturation 100% 12/17/2022 1:52 PM CYBER OPERATOR Inhaled Oxygen Concentration - - Weight 88.5 kg (195 lb) 12/17/2022 1:52 PM CYBER OPERATOR Height 165.1 cm (5' 5) 12/17/2022 1:52 PM CYBER OPERATOR Body Mass Index 32.45 12/17/2022 1:52 PM CYBER OPERATOR Plan of Treatment Health Maintenance Due Date Last Done Comments DTAP/TDAP/TD VACCINES (1 - Tdap) 1994 HEPATITIS B VACCINES (1 of 3 - 19+ 3-dose series) 1994 HPV/Cotest (21-29) 1996 CERVICAL CANCER SCREENING 2005 HPV/Cotest (30-65) 2005 PAP SMEAR 2005 COLORECTAL SCREENING 2020 Colorectal Cancer Screening 2020 FIT-DNA Q 3 years 2020 FIT/FOBT Q 1 year 2020 Flex Sig/CT Colonography Q 5 years 2020 BREAST CANCER SCREENING 11/27/2022 11/27/2021, 10/01 INFLUENZA VACCINE (#1) 2025 Insurance [facility]
[2025-06-09 08:57] LABS: Alanine Aminotransferase 20 U/L (6-35); Albumin Level 4.3 g/dL (3.5-5.1); Alkaline Phosphatase 85 U/L (38-126); Anion Gap 9 mmol/L (4-12); Aspartate Amino Transferase 28 U/L (14-36); Bilirubin,Total 0.6 mg/dL (0.2-1.3); Blood Urea Nitrogen 16 mg/dL (7-17); Calcium 9.4 mg/dL (8.4-10.2); Carbon Dioxide 29 mmol/L (22-30); Chloride 98 mmol/L (98-107); Cholesterol 202 mg/dL (0-200); Estimated Glomerular Filt Rate > 60; Glucose 101 mg/dL (65-110); HDL Direct 70 mg/dL; Potassium 3.1 mmol/L (3.4-5.0); Sodium 136 mmol/L (137-145); Total Protein 8.3 g/dL (6.3-8.2); Triglycerides 88 mg/dL (<150)
== END 2025-06-09 08:07 | disposition home or self-care (01) ==
LOC: ANHLAB 08:07
PROVIDERS: PCP Family Medicine; Visit Provider Family Medicine
DX: E78.5 Hyperlipidemia, unspecified (principal); I10 Essential (primary) hypertension; E87.6 Hypokalemia
CPT/HCPCS: 36415; 80053; 80061